=== PATIENT | male | born 1955 | race American Indian/Alaskan Native ===

== ENCOUNTER 2017-08-16 13:53 | Emergency (ER) | payer OTHER ==
[~2017-08-16 13:53] MED LIST: ADRENALIN ONE; SODIUM BICARBONATE IV ONE
--- NOTE | 2017-08-16 14:52 | Emergency Department Report ---
ED CPR HPI - General Chief Complaint: Cardiac Arrest/CPR Stated Complaint: CARDIAC ARREST Time Seen by Provider: 08/16/17 13:53 Source: EMS Mode of arrival: Stretcher Limitations: Altered Mental Status, Other (cardiac arrest) - History of Present Illness Initial Comments: Patient is 62-year-old male that presents emergency room in full cardiac arrest. EMS system multiple rounds of CPR and meds in accordance with ACLS protocol patients currently intubated. Per EMS patient complained of abdominal pain and stood up and went down and the went unresponsive witnessed by co- workers. Family called 911. EMS has been performing CPR and ATLS measures 25 minutes and shocked the patient 3 times for V. fib. assumed care at 1331 MD Complaint: collapsed during activity Place: work Bystander CPR Performed: No Shock Advised: Yes Number of Shocks Delivered: 3 Initial Findings in the Field: unresponsive, no respirations, no pulse, VTACH/ VFIB ROSC in the Field: No Associated Injuries: No Associated Symptoms: abdominal pain Treatments Prior to Arrival: intubation, BMV, defribrillated shocks # (3), epinephrine mgs #, sodium bicarbonate, other (Narcan) - Related Data Allergies Allergy/AdvReac Type Severity Reaction Status Date / Time Unable to Assess Allergy Unverified 08/16/17 14:09 ED Review of Systems ROS: Stated complaint: CARDIAC ARREST Other details as noted in HPI Comment: Unobtainable due to pts medical conditions ED Past Medical Hx - Past Medical History Previous Medical History?: No - Surgical History Past Surgical History?: No - Family History Family history: no significant - Social History Smoking Status: Unknown if ever smoked Substance Use Type: None ED Physical Exam - General Limitations: Altered Mental Status, Physical Limitation, Other General appearance: obtunded, other (patient unresponsive) - Head Head exam: Present: atraumatic, normocephalic - Respiratory Respiratory exam: Present: other (abdomen distended. No respiratory sounds noted in all lung bryan and an air heard over her epigastrium. ) - Cardiovascular Cardiovascular Exam: Present: other (no cardiac sounds noted) - Neurological Exam Neurological exam: Present: other (pupils fixed and dilated) - Skin Skin exam: Present: warm, dry, intact ED Course - Reevaluation(s) Reevaluation #1: CPR continued. GI fluid noted to be coming out of the ET tube and air heard over epigastrium. Stomach appears to be intubated. Patient extubated and reintubated with a scope. One attempt to intubate patient. CPR continued after intubation and see nurses CPR/code note.. 08/16/17 15:31 Reevaluation #2: Patient pronounced. See code note 08/16/17 13:53 Reevaluation #3: . Multiple attempts made to contact family. Attempts unsuccessful. Charge nurse continuing to try to contact the family members 08/16/17 15:58 - Intubation Time Out Performed: Yes Sedative: none Laryngoscope: fiberoptic video scope Size: 4 Assist Device Used: fiberoptic device ET Tube Size: 7.5 Tube Placement Confirmation: visualized tube passing t, equal breath sounds bilat, no breath sounds over epi, confirmation by capnometr Patient Tolerated Procedure: well Intubation Complications: none ED Medical Decision Making - Differential Diagnosis arrest... Critical care attestation.: If time is entered above; I have spent that time in minutes in the direct care of this critically ill patient, excluding procedure time. ED Disposition Clinical Impression: Cardiac arrest Disposition: DC-20 Is pt being admited?: No Does the pt Need Aspirin: No Referrals: PRIMARY CARE, [Primary Care Provider] - 3-5 Days Time of Disposition: 13:56
== END 2017-08-16 20:08 ==
LOC: ED 13:53
DX: I46.9 Cardiac arrest, cause unspecified (principal)
CPT/HCPCS: 31500; 92950; 99285; J0171